=== PATIENT | female | born 2000 | race Caucasian/White ===

== ENCOUNTER → 2022-02-10 | Outpatient (CLI) | payer OTHER ==
[2022-02-10 22:54] LABS: HCT 43.8 % (37.2-46.3); HGB 14.1 g/dL (12.0-15.0); MCH 29.6 pg (27.0-32.0); MCHC 32.2 g/dL (32.0-37.0); MCV 91.8 fL (80.0-97.0); Mean Platelet Volume 11.1 fL (9.5-12.2); NRBC Per 100 WBC 0 /100 WBCS (0.0-0.0); Platelet Count 231 X 10*3/uL (140-440); RBC 4.77 X 10*6/uL (4.10-5.20); RDW 12.7 % (11.5-14.5); WBC 6.72 X 10*3/uL (4.50-10.00)
[2022-02-10 23:02] LABS: T4, Free (Free Thyroxine) 1.28 ng/dL (0.830-1.430)
== END | disposition home or self-care (01) ==
LOC: LABWHC1 16:06
PROVIDERS: ATTEND Pediatrics
DX: R53.83 Other fatigue (principal)
CPT/HCPCS: 36415; 84439; 84443; 84481; 85027